=== PATIENT | male | born 1990 | race Caucasian/White ===

== ENCOUNTER 2016-11-04 13:33 | Emergency (ER) | payer OTHER ==
--- NOTE | 2016-11-04 14:48 | XRAY Preliminary Report ---
Exam: XR Chest 2 View PA/LAT IMPRESSION: Normal 2-view chest radiography. [facility] SITE ID: [id number]
--- NOTE | 2016-11-04 14:51 | XRAY Report ---
EXAM: CHEST RADIOGRAPHY EXAM DATE: 11/04/2016 02:40 PM. CLINICAL HISTORY: Chest pain COMPARISON: None. TECHNIQUE: 2 views. FINDINGS: Lungs/Pleura: No focal opacities evident. No pleural effusion. No pneumothorax. Normal volumes. Mediastinum: Heart and mediastinal contours are unremarkable. Other: None. IMPRESSION: Normal 2-view chest radiography. [facility] Referring Provider Line: [phone] SITE ID: [id number]
--- NOTE | 2016-11-04 16:29 | ED Physician Documentation ---
PD HPI CHEST PAIN - Stated complaint Stated Complaint: CHEST PX - Chief complaint Chief Complaint: Cardiac - History obtained from History obtained from: Patient - History of Present Illness Timing - onset: Other (This is a 26-year-old gentleman who complains of chest pain. [place] taking a road trip from [place]. No testing was done at the time. Today he had progressive central radiating outward chest pain all day associated with mild shortness of breath. No personal or family history of DVT.) Review of Systems Ten Systems: 10 systems reviewed and negative Constitutional: reports: Reviewed and negative Cardiac: reports: Chest pain / pressure, Calf pain. denies: Palpitations, Pedal edema Respiratory: denies: Dyspnea, Cough GI: denies: Abdominal Pain, Nausea PD PAST MEDICAL HISTORY - Present Medications Home Medications: Ambulatory Orders Medication Instructions Recorded Confirmed No Known Home Medications [No 11/04/16 11/04/16 Known Home Medications] - Allergies Allergies/Adverse Reactions: Allergies Allergy/AdvReac Type Severity Reaction Status Date / Time No Known Drug Allergies Allergy Verified 11/04/16 13:53 PD ED PE NORMAL - Vitals Vital signs reviewed: Yes - General General: Alert and oriented X 3, No acute distress - Neck Neck: Supple, no meningeal sign, No bony TTP - Cardiac Cardiac: RRR, No murmur - Respiratory Respiratory: No respiratory distress, Clear bilaterally - Abdomen Abdomen: Non tender - Extremities Extremities: Other (Small bruise just posertior R fibular head, no edema, or TTP ) - Neuro Neuro: Alert and oriented X 3, Normal speech Results - Vitals Vitals: Vital Signs - 24 hr 11/04/16 11/04/16 13:50 17:12 Temperature 36.3 C L Heart Rate 65 60 Respiratory 18 18 Rate Blood Pressure 114/75 109/62 O2 Saturation 99 99 Oxygen O2 Source Room air - EKG (time done) 1342 Rate: Rate (enter#) (60) Rhythm: NSR [place]: Normal Intervals: RBBB (INCOMPLETE) QRS: Normal Ischemia: Normal ST segments Computer interpretation: Agree with computer - Labs Labs: Laboratory Tests 11/04/16 16:27 D-Dimer 171.8 L PD MEDICAL DECISION MAKING - ED course ED course: The combination of atypical chest pain and recent leg pain is concerning for PE , although he is young and healthy and has no personal family history of this and has normal vital signs. A d-dimer is checked and negative. Departure - Departure Disposition: 01 Home, Self Care Clinical Impression: Chest pain Qualifiers: Chest pain type: chest pain on breathing Qualified Code(s): R07.1 - Chest pain on breathing Condition: Good Record reviewed to determine appropriate education?: Yes Instructions: ED Chest Pain NonCardiac Comments: Call your doctor to arrange a follow-up appointment, make the next available appointment. In the interim, return anytime if worse or if new symptoms develop.
[2016-11-04 17:30] VITALS: BP 112/67
== END 2016-11-04 17:31 | disposition home or self-care (01) ==
LOC: ED 13:33
DX: R07.1 Chest pain on breathing (principal); M79.661 Pain in right lower leg
CPT/HCPCS: 36415; 71020; 85379; 93005; 99283; 99284